=== PATIENT | male | born 2000 | race Caucasian/White ===

== ENCOUNTER 2021-07-17 07:02 | Outpatient (REF) | payer OTHER, SELFPAY ==
[2021-07-17 11:01] LABS: MANUAL DIFF FLAG NO
[2021-07-17 11:08] LABS: Basophils Absolute Auto 0.1 X10*3/uL (0.0-0.2); Basophils Percent Auto 0.7 % (0-2); Eosinophils Absolute Auto 0.1 X10*3/uL (0.0-0.4); Eosinophils Percent Auto 1.8 % (0-4); Hematocrit 48.2 % (42-52); Hemoglobin 17.1 g/dl (14.0-18.0); Imm Gran Abs Auto 0.03 X10*3/uL (0.00-0.03); Imm Gran Pct Auto 0.4 % (0.0-0.4); Lymphocytes Absolute Auto 2.3 X10*3/uL (1.2-4.9); Lymphocytes Percent Auto 29.7 % (20-40); Mean Corpuscular HGB Conc 35.5 g/dl (31.0-36.0); Mean Corpuscular Hemoglobin 30.7 pg (27.0-33.0); Mean Corpuscular Volume 86.5 fL (80-98); Mean Platelet Volume 10.7 fL (9.4-12.4); Monocytes Absolute Auto 0.9 X10*3/uL (0.1-1.2); Neutrophils Absolute Auto 4.2 X10*3/uL (2.0-8.3); Neutrophils Percent Auto 55.4 % (45-73); Platelet Count 307 X10*3/uL (160-400); Red Blood Count 5.57 X10*6/uL (4.60-5.80); Red Cell Distribution Width 12.1 % (11.0-16.0); White Blood Count 7.6 X10*3/uL (4.8-10.8)
[2021-07-17 11:20] LABS: Cholesterol 217 mg/dL; Glucose Fasting 91 mg/dL (60-99); HDL Cholesterol 48 mg/dL; LDL Cholesterol Calculated 137 mg/dl; Triglycerides 163 mg/dL
[2021-07-17 11:41] LABS: Thyroid Stimulating Hormone 2.94 uIU/mL (0.32-4.0)
[2021-07-17 15:16] LABS: Glucose Urine UA NEG (NEG); Leukocyte Esterase Urine NEG (NEG); Nitrite Urine NEG (NEG); PH 6.5 (5.0-8.0); Specific Gravity - Urine 1.015 (1.005-1.025); Urine Blood NEG (NEG); Urine Ketones NEG (NEG); Urine Protein NEG (NEG-TRACE)
[2021-07-17 15:19] LABS: Appearance Urine HAZY; Color Urine YELLOW
== END 2021-07-17 07:03 | disposition home or self-care (01) ==
LOC: HO.HMGCLDS 07:02
PROVIDERS: PCP Internal Medicine; Visit Provider Internal Medicine
DX: Z00.00 Encounter for general adult medical examination without abnormal findings (principal)
CPT/HCPCS: 36415; 80061; 81003; 82947; 84443; 85025

== ENCOUNTER 2023-11-02 13:52 | Outpatient (AMB) | payer OTHER, SELFPAY ==
--- NOTE | 2023-11-02 14:16 | MHC.OFFVIS ---
Intake Vital Signs 11/02/23 14:23 Weight 192 lb Intake Visit Reasons: anal fistula Intake Note: This patient presents for an assessment for anal fistula. Patient c/o; reports no rectal bleeding or pain. Pets Salesperson Required: No Accompanied by: Self / Same As Patient Allergies No Known Allergies Allergy (Verified 11/02/23 14:24) Medication List - Last Reconciled 11/02/23 by Edilberto Hawkins MD No Known Home Meds HPI anal fistula HPI Details 23-year-old male referred for a question of anal fistula. He actually points to ?holes? on the skin within the gluteal cleft. He says that he has had recurrent drainage with this and sometimes this can be a little bloody or purulent. He has had this for about 3 years now. He had call the office 3 years ago but he did not come because of the COVID pandemic at that time. He denies any problems with bowel movements. [facility] Medical History (Updated 11/02/23 @ 14:46 by Edilberto Hawkins MD) Pilonidal disease Surgical History History of appendectomy Family History Maternal Grandfather Colon cancer Social History Alcohol intake: never Patient Tobacco Use Status: Never used Tobacco Review of Systems Const Denies chills and Denies fever(s) Card Denies chest pain, Denies dyspnea and Denies dyspnea on exertion Resp Denies cough, Denies dyspnea and Denies dyspnea on exertion GI Denies hematochezia and Denies change in bowel habits Denies hematuria and Denies difficulty urinating Musc Denies back pain and Denies limited range of motion Neuro Denies focal weakness and Denies convulsions Psych Denies depression and Denies mood swings Physical Exam Const General: comfortable and no acute distress Orientation/consciousness: patient oriented x3 Neck Neck: Yes no lymphadenopathy Resp Auscultation: clear to auscultation bilaterally Cardio Rhythm: regular rhythm GI Other: Rectal exam shows no fissure, no sinuses Palpation (GI): Soft to palpation, nontender and no guarding Back/Spine/Pelvis Other: Within the gluteal cleft the midline is note of multiple sinuses consistent with pilonidal cyst; this extends to an area of about 3 cm long. There is no fluctuance at this time Neuro General: patient oriented x3 Office Procedures Anoscopy He was in himanshu-knife position. The anoscope was gently inserted. A full examination of the anal canal was done. There was no sign of any fistula. There was no induration in the anal canal. He had small hemorrhoids. There was no fissure. There was no induration on digital exam [id number] Assessment & Plan Assessment & Plan (1) Pilonidal disease: Code(s): L98.8 - Other specified disorders of the skin and subcutaneous tissue Plan: He has multiple sinuses and induration on the gluteal cleft consistent with a pilonidal disease in the sacrococcygeal area. I assured him that he does not have any anal fistula I did explain to him that treatment for this pilonidal disease would be excision of the entire diseased area. I explained the technique of this procedure under anesthesia in the operating room. I explained to him what to expect after the procedure. I reviewed the risks including but not limited to bleeding, infections, poor healing, as well as the benefits and alternatives. He understands and wants to proceed. Coding Level of Care Code New Pt Level 3 (07760) Diagnoses Pilonidal disease L98.8 CPT Codes Details - CPT: [id number] ([id number])
== END 2023-11-02 14:44 | disposition home or self-care (01) ==
PROVIDERS: PCP Internal Medicine; Visit Provider Surgery
DX: L05.92 Pilonidal sinus without abscess (principal)
CPT/HCPCS: 46600; 99203

== ENCOUNTER → 2023-11-02 13:52 | Outpatient (BNVA) | payer OTHER, SELFPAY | PROVIDERS: PCP Internal Medicine; Visit Provider Surgery | DX: L98.8 Other specified disorders of the skin and subcutaneous tissue (principal); K64.9 Unspecified hemorrhoids | CPT/HCPCS: 46600 ==

== ENCOUNTER 2024-01-05 08:28 | Day surgery (SDC) | payer BC, SELFPAY ==
--- NOTE | 2024-01-04 10:40 | HO.ANESPROP2 ---
Documented by User: Dulce Morrison NP 01/04/24 10:40 HPI - Anesthesia Eval Consult details Narrative: 24yo M for Excision Pilonidal Cyst, sacrococcygeal area [facility] Active Problems Active Problems: All Active Problems (Updated 11/02/23 @ 14:46 by Edilberto Hawkins MD) Pilonidal disease (Acute) Past Medical History Medical History Pilonidal disease Family History Family History Maternal Grandfather Colon cancer Surgical History Surgical History History of appendectomy Social History Social History Alcohol intake: never Patient Tobacco Use Status: Never used Tobacco Use of substances other than those prescribed or required for medical reasons: No Are you DNR?: No Advance Directives: No Advance Directives Information Provided: Yes Meds Allergies Allergy/AdvReac Type Severity Reaction Status Date / Time No Known Allergies Allergy Verified 01/05/24 09:06 Assessment and Plan Assessment Anesthesia Assessment: Chart Reviewed Documented by User: Murali Soto MD 01/05/24 10:03 PMFSH Past Medical History Medical History Pilonidal disease Family History Family History Maternal Grandfather Colon cancer Family history of problems with anesthesia: No Surgical History Surgical History History of appendectomy History of Problems with Anesthesia: No Social History Social History Alcohol intake: never Patient Tobacco Use Status: Never used Tobacco Use of substances other than those prescribed or required for medical reasons: No Are you DNR?: No Advance Directives: No Advance Directives Information Provided: Yes Meds Allergies Allergy/AdvReac Type Severity Reaction Status Date / Time No Known Allergies Allergy Verified 01/05/24 09:06 Exam Airway Mallampati Class: I TM Dist: >3cm Neck ROM: Full Loose/Missing/Broken Teeth: No Heart: ok Lungs: ok Assessment and Plan Assessment Anesthesia Assessment: Anesthesia Plan Discussed Final Anesthetic Review Family History of Problems with Anesthesia: No History of Problems with Anesthesia: No NPO: Yes ASA Class: I Final Preanesthetic Review: No Changes in Pt Med Stat, Meds/Allgs Chart Reviewed, Consent Obtained/Reviewed and Anes Risks/Benef Reviewed Patient Risk: Low Procedure Risk: Intermediate Anesthetic Plan Anesthetic Plan: GA and Agree w/ Assess. and Plan Disposition: Standard PACU
[2024-01-05] VITALS (7 sets, daily range): BP systolic 105–144; BP diastolic 38–92; PULSE 59–80; RESP 16–18; TEMP 36.2–36.9; O2SAT 97–100; BMI 27.2
[2024-01-05] MEDS: Lactated Ringers 1,000 ML 100 ML IVCONT (09:34)
--- NOTE | 2024-01-05 09:49 | MHC.SHP ---
Pre-Procedural Eval Section A - 24 Hr Update-Section A only Date of Service: 01/05/24 Section B - Complete if H&P > 30 days Chief Complaint: Other specified disorders of the skin and subcutan Details of Present Illness: has had sinuses and induration on sacrococcygeal area for years Relevant Family History (Specify if Yes): No Relevant Social History: None Present Medications: see Short Stay Collaborative assessment Medical History: No relevant PMH History of Previous Operations: No relevant previous surgery Allergies: Allergies Allergy/AdvReac Type Severity Reaction Status Date / Time No Known Allergies Allergy Verified 01/05/24 09:06 Review of Systems Sugical H&P ROS: Negative: Constitution, Cardiovascular, Respiratory, Neurological, Psychiatric, Hem-Onc, Allergic/Immunologic, Gastrointestinal, Genitourinary, Musculoskeletal, Integumentary, Endocrine and Eyes/Ears/Nose/Throat Exam Surgical H&P Exam: Normal: HEENT, Normal: Heart, Normal: Lungs, Normal: Extremities, Normal: Abdomen, Normal: Skin and Normal: Neurological Exam Comment: pilonidal cyst Plan Diagnosis/Plan: Unchanged I have reviewed the history and physical and performed a pertinent physical examination on my patient. No changes have occurred unless specified. Time Spent With Patient Time: Total time managing care of this patient today ____ minutes.
--- NOTE | 2024-01-05 10:48 | P.OP_ITS ---
Operative Note Operative Note Date of Service: 01/05/24 Narrative: Preop diagnosis: Pilonidal cyst, sacrococcygeal area Postop diagnosis: The same Procedure: Excision of pilonidal cyst, sacrococcygeal area Surgeon: Edilberto Hawkins MD The patient is a 24-year-old male with note of a long history of drainage and induration in the area of the tailbone. He was seen in the office. Was noted to have multiple sinuses within the gluteal cleft with induration consistent with a pilonidal cyst. He was also hirsute. He understood the technique of excision of the pilonidal cyst as well as the risks, benefits, and alternatives He was brought to the operating room. He was placed in prone position under general anesthesia via laryngeal mask airway. The buttocks were retracted with wide tape laterally. The sacrococcygeal area was prepped and draped in the usual sterile fashion. A surgical time-out was done. The patient received cefazolin 2 g IV preoperatively The multiple sinuses with the gluteal cleft and the midline were seen. I marked my planned line of the incision. I infiltrated this with lidocaine 1%. I made the incision on the skin around this entire area of induration with sinuses using a blade 15. This was carried down with electrocautery through the full- thickness of the thick subcutaneous fat to excise this entire indurated area. This was sent as a specimen. The area of dissection was about 7 cm long, 2 cm wide and 2.[address] deep into the subcutaneous layer. I copies irrigated I reapposed the subcutaneous layer the Polysorb 3-0 sutures. Skin closure was achieved with nylon 2-0 simple interrupted sutures alternating with vertical mattress sutures. The area was then infiltrated with Marcaine 0.5% for postop analgesia. Dressings were applied. The procedure was completed. He tolerated the procedure well. There were no immediate complications. Initial and final counts of sponges and instruments were correct. Estimated blood loss was about 15 cc. The patient was extubated without difficulty and transferred to the recovery room with stable vital signs.
== END 2024-01-05 11:39 | disposition home or self-care (01) ==
PROVIDERS: PCP Internal Medicine; Visit Provider Surgery
PROC: (CPT 11771; principal; 2024-01-05 09:50)
DX: L05.91 Pilonidal cyst without abscess (principal); L68.0 Hirsutism
CPT/HCPCS: 11771; 88304; J0690; J1170; J1885; J2405; J2704; J2795; J3010

== ENCOUNTER → 2024-01-05 08:28 | Outpatient (BNV) | payer BC, SELFPAY | PROVIDERS: PCP Internal Medicine; Visit Provider Surgery | DX: L05.91 Pilonidal cyst without abscess (principal) | CPT/HCPCS: 11771 ==

== ENCOUNTER 2024-01-18 08:42 | Outpatient (AMB) | payer OTHER, SELFPAY ==
--- NOTE | 2024-01-18 08:46 | A.OFFVIS_ITS ---
Intake Intake Visit Reasons: S/p Pilonidal cyst sacrococcygeal area Intake Note: This patient presents for a post-op assessment status post excision pilonidal cyst, sacrococcygeal area. Pt c/o; reports no complaints at this time. Certified Breastfeeding Educator Required: No Accompanied by: Self / Same As Patient Allergies No Known Allergies Allergy (Verified 01/18/24 08:52) Medication List - Last Reconciled 01/18/24 by Edilberto Hawkins MD ibuprofen 600 mg PO Q6H PRN oxycodone-acetaminophen 5-325 mg (Percocet) 1 tab PO Q4-6H PRN HPI S/p Pilonidal cyst sacrococcygeal area HPI Details He had undergone excision of a pilonidal cyst from the sacrococcygeal area last 01/05/2024. He tolerated procedure well. He currently denies significant complaints. He does state that there is still some drainage from the area. [facility] Medical History Pilonidal disease Surgical History History of excision of pilonidal cyst (~01/05/24) History of appendectomy Family History Maternal Grandfather Colon cancer Social History Alcohol intake: never Patient Tobacco Use Status: Never used Tobacco Review of Systems Const Denies chills and Denies fever(s) Card Denies chest pain, Denies dyspnea and Denies dyspnea on exertion Resp Denies cough, Denies dyspnea and Denies dyspnea on exertion GI Denies hematochezia and Denies change in bowel habits Denies hematuria and Denies difficulty urinating Musc Denies back pain and Denies limited range of motion Neuro Denies focal weakness and Denies convulsions Psych Denies depression and Denies mood swings Physical Exam Const General: comfortable and no acute distress Resp Effort & Inspection: normal respiratory effort Cardio Rate: regular rate Back/Spine/Pelvis Other: Excision site on the sacrococcygeal area clean, healing well, sutures intact but still with a little bit of separation between the skin edges Assessment & Plan Assessment & Plan (1) Pilonidal disease: Code(s): L98.8 - Other specified disorders of the skin and subcutaneous tissue Plan: Status post excision. The excision site is healing well. I did not remove the sutures as there is still some skin separation. I plan on seeing him again next week to remove the sutures when ready. The area is clean and is not infected. His path report confirms pilonidal disease. Coding Level of Care Code Global (43442) Diagnoses Pilonidal disease L98.8
== END 2024-01-18 09:13 | disposition home or self-care (01) ==
PROVIDERS: PCP Internal Medicine; Visit Provider Surgery
DX: L98.8 Other specified disorders of the skin and subcutaneous tissue (principal)
CPT/HCPCS: 99024

== ENCOUNTER → 2024-01-18 08:42 | Outpatient (BNVA) | payer OTHER, SELFPAY | PROVIDERS: PCP Internal Medicine; Visit Provider Surgery ==

== ENCOUNTER 2024-01-25 15:35 | Outpatient (AMB) | payer BC, SELFPAY ==
--- NOTE | 2024-01-25 15:39 | A.OFFVIS_ITS ---
Intake Intake Visit Reasons: S/p Pilonidal cyst sacrococcygeal area Intake Note: This patient presents for a post-op excision pilonidal cyst sacrococcygeal area. Pt c/o; reports no complaints. Rail Operator Required: No Accompanied by: Self / Same As Patient Allergies No Known Allergies Allergy (Verified 01/25/24 15:44) HPI S/p Pilonidal cyst sacrococcygeal area HPI Details He is here for a postop visit after excision of a pilonidal cyst from the sacrococcygeal area last January 05. He says he is doing well. His pain is much improved. [facility] Medical History Pilonidal disease Surgical History History of excision of pilonidal cyst (~01/05/24) History of appendectomy Family History Maternal Grandfather Colon cancer Social History Alcohol intake: never Patient Tobacco Use Status: Never used Tobacco Review of Systems Const Denies chills and Denies fever(s) Card Denies chest pain, Denies dyspnea and Denies dyspnea on exertion Resp Denies cough, Denies dyspnea and Denies dyspnea on exertion GI Denies hematochezia and Denies change in bowel habits Denies hematuria and Denies difficulty urinating Musc Denies back pain and Denies limited range of motion Neuro Denies focal weakness and Denies convulsions Psych Denies depression and Denies mood swings Physical Exam Const General: comfortable and no acute distress Back/Spine/Pelvis Other: Excision site is healing well, sutures intact, some epithelial debris collecting within the gluteal cleft along the incision, no signs of infection Assessment & Plan Assessment & Plan (1) Pilonidal disease: Code(s): L98.8 - Other specified disorders of the skin and subcutaneous tissue Plan: Status post excision. I removed all his sutures. The wound edges seemed to be well apposed. I advised him to do good wound care with frequent washing of the area with warm water. I will see him again in the office in about 2 weeks for another wound check. Coding Level of Care Code Global (30078) Diagnoses Pilonidal disease L98.8
== END 2024-01-25 16:00 | disposition home or self-care (01) ==
PROVIDERS: PCP Internal Medicine; Visit Provider Surgery
DX: L98.8 Other specified disorders of the skin and subcutaneous tissue (principal)
CPT/HCPCS: 99024

== ENCOUNTER → 2024-01-25 15:35 | Outpatient (BNVA) | payer BC, SELFPAY | PROVIDERS: PCP Internal Medicine; Visit Provider Surgery ==

== ENCOUNTER 2024-02-08 15:25 | Outpatient (AMB) | payer BC, SELFPAY ==
[2024-02-08 15:31] VITALS: BP 154/95; PULSE 88
--- NOTE | 2024-02-08 15:31 | A.OFFVIS_ITS ---
Intake Vital Signs 02/08/24 15:31 Weight 188 lb BP 154/95 H Blood Pressure Location Rt brachial Position Sitting Pulse 88 Intake Visit Reasons: S/p Pilonidal cyst sacrococcygeal area Intake Note: Patient here s/p pilonidal cyst on sacrum. Patient c/o: slowly healing. SX: 01-05-24. Leasing Director Required: No Accompanied by: Self / Same As Patient Allergies No Known Allergies Allergy (Verified 02/08/24 15:32) HPI S/p Pilonidal cyst sacrococcygeal area HPI Details He is here for follow-up after excision of a pilonidal cyst last month. He continues to have some bloody drainage from the area. He says he still has pain as well on the old incision. He says he has been pretty much doing regular level of activities. [facility] Medical History Pilonidal disease Surgical History History of excision of pilonidal cyst (~01/05/24) History of appendectomy Family History Maternal Grandfather Colon cancer Social History Alcohol intake: never Patient Tobacco Use Status: Never used Tobacco Review of Systems Const Denies chills and Denies fever(s) Card Denies chest pain, Denies dyspnea and Denies dyspnea on exertion Resp Denies cough, Denies dyspnea and Denies dyspnea on exertion GI Denies hematochezia and Denies change in bowel habits Denies hematuria and Denies difficulty urinating Musc Denies back pain and Denies limited range of motion Neuro Denies focal weakness and Denies convulsions Psych Denies depression and Denies mood swings Physical Exam Vital Signs: Last Vital Signs Pulse 88 02/08/24 15:31 BP 154/95 H 02/08/24 15:31 Const General: comfortable and no acute distress; No ill appearing Back/Spine/Pelvis Other: Excision site with skin separation, granulation tissue within, no pus, no cellulitis Assessment & Plan Assessment & Plan (1) Pilonidal disease: Code(s): L98.8 - Other specified disorders of the skin and subcutaneous tissue Plan: Status post excision. He had some skin separation. There was note of good granulation tissue in the open wound. I have instructed him on good wound care and hygiene. I anticipate this to completely reepithelialized down the line. I will see him again for another wound check in about 2-3 weeks. Coding Level of Care Code Global (38210) Diagnoses Pilonidal disease L98.8
== END 2024-02-08 15:48 | disposition home or self-care (01) ==
PROVIDERS: PCP Internal Medicine; Visit Provider Surgery
DX: L98.8 Other specified disorders of the skin and subcutaneous tissue (principal)
CPT/HCPCS: 99024

== ENCOUNTER → 2024-02-08 15:25 | Outpatient (BNVA) | payer BC, SELFPAY | PROVIDERS: PCP Internal Medicine; Visit Provider Surgery ==

== ENCOUNTER 2024-02-29 15:36 | Outpatient (AMB) | payer BC, SELFPAY ==
--- NOTE | 2024-02-29 15:40 | MHC.OFFVIS ---
Intake Intake Visit Reasons: S/p Pilonidal cyst sacrococcygeal area Intake Note: This patient presents for a wound check, Hx excision Pilonidal cyst sacrococcygeal area. Pt c/o; reports bloody/pus discharge. Pediatric Immunologist Required: No Accompanied by: Self / Same As Patient Allergies No Known Allergies Allergy (Verified 02/29/24 15:46) Medication List - Last Reconciled 02/29/24 by Edilberto Hawkins MD ibuprofen 600 mg PO Q6H PRN HPI S/p Pilonidal cyst sacrococcygeal area HPI Details He is here for a wound check after his pilonidal cyst excision last December,. He says that he still has some pain on the area. He would notice this to also still bleed every day. He denies denies any other complaints. He denies any purulent discharge. [facility] Medical History Pilonidal disease Surgical History History of excision of pilonidal cyst (~01/05/24) History of appendectomy Family History Maternal Grandfather Colon cancer Social History Alcohol intake: never Patient Tobacco Use Status: Never used Tobacco Review of Systems Const Denies chills and Denies fever(s) Card Denies chest pain, Denies dyspnea and Denies dyspnea on exertion Resp Denies cough, Denies dyspnea and Denies dyspnea on exertion GI Denies hematochezia and Denies change in bowel habits Denies hematuria and Denies difficulty urinating Musc Denies back pain and Denies limited range of motion Neuro Denies focal weakness and Denies convulsions Psych Denies depression and Denies mood swings Physical Exam Const General: comfortable and no acute distress Back/Spine/Pelvis Other: Excision site on the sacrococcygeal area has skin incision, good granulation in between, some bleeding in the granulation tissue, no pus; he has a very deep gluteal cleft; the area of skin separation has decreased in size Assessment & Plan Assessment & Plan (1) Pilonidal disease: Code(s): L98.8 - Other specified disorders of the skin and subcutaneous tissue Plan: Status post excision. He still has this area of skin separation with granulation tissue but this has decreased in size. I have changes dressings. I have instructed him to continue to do good wound care. I anticipate this area to completely reepithelialized down the line I emphasized to him good wound hygiene. I will see him again in the office in about 3 weeks. Coding Level of Care Code Global (57009) Diagnoses Pilonidal disease L98.8
== END 2024-02-29 16:03 | disposition home or self-care (01) ==
PROVIDERS: PCP Internal Medicine; Visit Provider Surgery
DX: L98.8 Other specified disorders of the skin and subcutaneous tissue (principal)
CPT/HCPCS: 99024

== ENCOUNTER → 2024-02-29 15:36 | Outpatient (BNVA) | payer BC, SELFPAY | PROVIDERS: PCP Internal Medicine; Visit Provider Surgery | DX: L98.8 Other specified disorders of the skin and subcutaneous tissue (principal) ==

== ENCOUNTER 2024-03-21 15:33 | Outpatient (AMB) | payer BC, SELFPAY ==
--- NOTE | 2024-03-21 15:34 | MHC.OFFVIS ---
Intake Visit Reasons: S/p Pilonidal cyst sacrococcygeal area Intake Note: This patient presents for a three week follow-up status post excision of pilonidal cyst, sacrococcygeal area. Pt c/o; reports no complaints. Film Touch Up Inspector Required: No Accompanied by: Self / Same As Patient Allergies No Known Allergies Allergy (Verified 03/21/24 15:35) HPI HPI S/p Pilonidal cyst sacrococcygeal area: Details: He is here for follow-up after pilonidal cyst excision. He has had this area that was slow to heal. He describes some drainage from this. He does state that the pain has improved significantly. [facility] Medical History Pilonidal disease Surgical History History of excision of pilonidal cyst (~01/05/24) History of appendectomy Family History Maternal Grandfather Colon cancer Social History Alcohol intake: never Patient Tobacco Use Status: Never used Tobacco Review of Systems Const Denies chills and Denies fever(s) Physical Exam Const General: comfortable and no acute distress Back/Spine/Pelvis Other: Open wound on the excision site is smaller however there is note of significant amounts of hair stuck around the open wound with resulting hypergranulation tissue; no cellulitis Assessment & Plan Assessment & Plan (1) Pilonidal disease: Code(s): L98.8 - Other specified disorders of the skin and subcutaneous tissue Category: Medical Plan: Status post excision. The open wound has contracted and seems to be much smaller now. However, I have noted hair strands stuck on the open wound so I had to cut hair around the area. The presence of large amounts of hair in contact with the wound may be causing some inflammatory reaction. I advised him on being more vigorous with regards to cleaning the area every day. He is to keep the area clean and dry with a gauze as well and changed this during the day I will see him again in the office in about a month. Coding Level of Care Code Global (92320) Diagnoses Pilonidal disease L98.8
== END 2024-03-21 15:51 | disposition home or self-care (01) ==
PROVIDERS: PCP Internal Medicine; Visit Provider Surgery
DX: L98.8 Other specified disorders of the skin and subcutaneous tissue (principal)
CPT/HCPCS: 99024

== ENCOUNTER → 2024-03-21 15:33 | Outpatient (BNVA) | payer BC, SELFPAY | PROVIDERS: PCP Internal Medicine; Visit Provider Surgery | DX: L98.8 Other specified disorders of the skin and subcutaneous tissue (principal) ==

== ENCOUNTER 2024-05-09 15:15 | Outpatient (AMB) | payer BC, SELFPAY ==
--- NOTE | 2024-05-09 15:22 | A.OFFVIS_ITS ---
Vital Signs 05/09/24 15:28 Height 5 ft 11 in Weight 187 lb 15.987 oz BMI 26.2 Intake Visit Reasons: Pilonidal disease, wound check Intake Note: This patient presents for a wound check for pilonidal disease. Patient c/o; reports no complaints. Gold Assayer Required: No Accompanied by: Self / Same As Patient Allergies No Known Allergies Allergy (Verified 05/09/24 15:23) Medication List - Last Reconciled 05/09/24 by Edilberto Hawkins MD ibuprofen 600 mg PO Q6H PRN HPI HPI Pilonidal disease, wound check: Details: He is here for follow-up after excision of a pilonidal cyst last December,. He says that he no longer has significant pain on the area. He says that the drainage has improved significantly. He says he is back to his regular level of activities and has even gone to the beach. [facility] Medical History Pilonidal disease Surgical History History of excision of pilonidal cyst (~01/05/24) History of appendectomy Family History Maternal Grandfather Colon cancer Social History Alcohol intake: never Patient Tobacco Use Status: Never used Tobacco Review of Systems Const Denies chills and Denies fever(s) Card Denies chest pain, Denies dyspnea and Denies dyspnea on exertion Resp Denies cough, Denies dyspnea and Denies dyspnea on exertion GI Denies hematochezia and Denies change in bowel habits Denies hematuria and Denies difficulty urinating Musc Denies back pain and Denies limited range of motion Neuro Denies focal weakness and Denies convulsions Psych Denies depression and Denies mood swings Physical Exam Vital Signs: BMI result Body Mass Index 26.2 Const General: comfortable and no acute distress Resp Effort & Inspection: normal respiratory effort Back/Spine/Pelvis Other: In the gluteal cleft is note of a very small residual open wound with good granulation. However, there is note of significant epithelial debris and loose hair within the gluteal cleft itself that is in trapped because of his deep cleft. I had to clean this up the moist gauze Assessment & Plan Assessment & Plan (1) Pilonidal disease: Code(s): L98.8 - Other specified disorders of the skin and subcutaneous tissue Category: Medical Plan: He had excision done in December,. It took a while for the excision site to heal completely. This is now down to a very small open wound which is clean However, there was note of entrapped epithelial debris and loose hair within the gluteal cleft. I told him that this will make him prone to recurrence. I instructed him to make sure that he does vigorous washing of the gluteal cleft at least once or twice a day to prevent recurrence of his disease. He is very hairy so he is prone to recurrence of this pilonidal disease He says he will call me for follow-up in a few months if he does not notice complete resolution of the open wound. Overall, he has improved significantly. Coding Level of Care Code Est Pt Level 2 (43417) Diagnoses Pilonidal disease L98.8
[2024-05-09 15:28] VITALS: BMI 26.2
== END 2024-05-09 15:37 | disposition home or self-care (01) ==
PROVIDERS: PCP Internal Medicine; Visit Provider Surgery
DX: L98.8 Other specified disorders of the skin and subcutaneous tissue (principal)
CPT/HCPCS: 99212

== ENCOUNTER → 2024-05-09 15:15 | Outpatient (BNVA) | payer BC, SELFPAY | PROVIDERS: PCP Internal Medicine; Visit Provider Surgery ==

== ENCOUNTER 2024-09-16 15:18 | Outpatient (AMB) | payer BC, SELFPAY ==
--- NOTE | 2024-09-16 15:20 | A.OFFVIS_ITS ---
Intake Visit Reasons: Pilonidal disease, wound check Intake Note: This patient presents for Pilonidal disease, wound check. Pt c/o: reports no complaints at this time. Three Knife Trimmer Required: No Accompanied by: Self / Same As Patient Allergies No Known Allergies Allergy (Verified 09/16/24 15:25) Medication List - Last Reconciled 09/16/24 by Edilberto Hawkins MD ibuprofen 600 mg PO Q6H PRN HPI HPI Pilonidal disease, wound check: Details: He is here for follow-up after excision of a large pilonidal cyst from the sacrococcygeal area in December, He says that there is less bleeding and discharge from the open wound. He does not see the area well so he wanted this to be checked again. He denies any significant pain. [facility] Medical History Pilonidal disease Surgical History History of excision of pilonidal cyst (~01/05/24) History of appendectomy Family History Maternal Grandfather Colon cancer Social History Alcohol intake: never Patient Tobacco Use Status: Never used Tobacco Review of Systems Const Denies chills and Denies fever(s) Card Denies chest pain GI Denies abdominal pain Physical Exam Const General: comfortable and no acute distress Resp Effort & Inspection: normal respiratory effort Back/Spine/Pelvis Other: Excision site on the sacrococcygeal area has residual open wound granulation well but with note of entrapped still debris and strands of hair. Otherwise no signs of infection Office Procedures Cauterization - Skin lesions Skin Cauter Details: There was note of hypergranulation of the residual open wound. I therefore cauterized stitch using silver nitrate sticks. He tolerated procedure well. There were no immediate complications. The area cauterized was about cm by 4 cm Destruction: 24310- Chemical Cautery, Granulation Tissue Assessment & Plan Assessment & Plan (1) Pilonidal disease: Code(s): L98.8 - Other specified disorders of the skin and subcutaneous tissue Category: Medical Plan: Status post excision in December 2023. However, there is still a residual open wound. There was note of some trapped epithelial debris as well as clamps of hair in the area. I scrubbed this gauze. I cauterized the remaining open wound with silver nitrate sticks I advised him to be more aggressive with regards to cleaning the area. Unfortunately, healing we will be prolonged and delayed if there is note of trapped epithelial debris and hair. He seems to understand. I will see him again in the office in about a month. Coding Level of Care Code Est Pt Level 3 (13852) Diagnoses Pilonidal disease L98.8 CPT Codes Skin Cauter - Destruction: 90039- Chemical Cautery, Granulation Tissue ([id number])
== END 2024-09-16 15:32 | disposition home or self-care (01) ==
LOC: HO.HGS 15:19
PROVIDERS: PCP Internal Medicine; Visit Provider Surgery
DX: L98.8 Other specified disorders of the skin and subcutaneous tissue (principal)
CPT/HCPCS: 17250; 99213

== ENCOUNTER → 2024-09-16 15:18 | Outpatient (BNVA) | payer BC, SELFPAY | PROVIDERS: PCP Internal Medicine; Visit Provider Surgery | DX: T81.31XA Disruption of external operation (surgical) wound, not elsewhere classified, initial encounter (principal) | CPT/HCPCS: 17250 ==

== ENCOUNTER → 2024-11-18 08:19 | Outpatient (BNVA) | payer BC, SELFPAY | PROVIDERS: PCP Internal Medicine; Visit Provider Surgery | DX: L05.91 Pilonidal cyst without abscess (principal) | CPT/HCPCS: 17250 ==

== ENCOUNTER 2024-11-18 08:53 | Outpatient (AMB) | payer OTHER, SELFPAY ==
[2024-11-18 09:00] VITALS: BMI 27.4
--- NOTE | 2024-11-18 09:00 | A.OFFVIS_ITS ---
Vital Signs 11/18/24 09:00 Height 5 ft 11 in Weight 196 lb 8 oz BMI 27.4 Intake Visit Reasons: pilonidal cyst recurrence Intake Note: This patient presents for wound check for pilonidal cyst. Pt c/o; reports he is here for a wound check. Shipping And Receiving Coordinator Required: No Accompanied by: Self / Same As Patient Allergies No Known Allergies Allergy (Verified 11/18/24 09:01) Medication List - Last Reconciled 11/18/24 by Edilberto Hawkins MD ibuprofen 600 mg PO Q6H PRN HPI HPI pilonidal cyst recurrence: Details: He had excision of a large area of pilonidal disease on the sacrococcygeal region last December,. He has had this wound that has healed very slowly I had cauterized hypergranulation areas on his last visit. He says he has very minimal drainage if at all. He does state that the wound seems to be much smaller. [facility] Medical History Pilonidal disease Surgical History History of excision of pilonidal cyst (~01/05/24) History of appendectomy Family History Maternal Grandfather Colon cancer Social History Alcohol intake: never Patient Tobacco Use Status: Never used Tobacco Review of Systems Const Denies chills and Denies fever(s) Card Denies chest pain, Denies dyspnea and Denies dyspnea on exertion Resp Denies cough, Denies dyspnea and Denies dyspnea on exertion GI Denies hematochezia and Denies change in bowel habits Denies hematuria and Denies difficulty urinating Musc Denies back pain and Denies limited range of motion Neuro Denies focal weakness and Denies convulsions Psych Denies depression and Denies mood swings Physical Exam Vital Signs: BMI result Body Mass Index 27.4 Const General: comfortable and no acute distress Resp Effort & Inspection: normal respiratory effort Cardio Rate: regular rate Back/Spine/Pelvis Other: Residual wound in the gluteal cleft, with good hypergranulation tissue, about 2.8 cm long by about 1 cm wide, clean, not infected Office Procedures Cauterization - Skin lesions Skin Cauter Details: He was in himanshu-knife position. The buttocks were retracted laterally. I cauterized hypergranulation tissue on the residual open wound. I applied dry dressings. He tolerated procedure well. There were no immediate complications. Destruction: 54711- Chemical Cautery, Granulation Tissue Assessment & Plan Assessment & Plan (1) Pilonidal disease: Code(s): L98.8 - Other specified disorders of the skin and subcutaneous tissue Category: Medical Plan: He has a residual open wound with some hypergranulation. I cauterized this with silver nitrate sticks. This has decreased in surface area He is to continue good wound care. I anticipate this to continue to heal and reepithelialized. I will see him again in the office for another wound check in about 2 months. Coding Level of Care Code Est Pt Level 3 (86284) Diagnoses Pilonidal disease L98.8 CPT Codes Skin Cauter - Destruction: 63130- Chemical Cautery, Granulation Tissue ([id number])
== END 2024-11-18 09:15 | disposition home or self-care (01) ==
LOC: HO.HGS 08:53
PROVIDERS: PCP Internal Medicine; Visit Provider Surgery
DX: L98.8 Other specified disorders of the skin and subcutaneous tissue (principal)
CPT/HCPCS: 17250; 99213

== ENCOUNTER 2025-11-11 14:49 | Outpatient (AMB) | payer OTHER, SELFPAY ==
--- NOTE | 2025-11-11 14:51 | MHC.PC.OV ---
Vital Signs 11/11/25 14:59 Height 5 ft 10.47 in Weight 200 lb BMI 28.3 BP 146/61 H Blood Pressure Location Rt brachial Position Sitting Respiration 14 Pulse 72 Pulse Source Pulse Oximeter Temp 97.7 F Temp Source Temporal Artery Scan Pulse Oximetry (%) 99 Oxygen Delivery Method Room Air Intake Visit Reasons: physical English Instructor Required: No Accompanied by: Self / Same As Patient Allergies No Known Allergies Allergy (Verified 11/11/25 14:51) Tobacco use date assessed: 11/11/25 Dental Screening Dental Screen Date: 11/11/25 Did you have a dental visit in the last 12 months?: No Did you have a dental problem in the last 6 months where you did not have access to dental care?: No Was dental information given to patient?: Patient has dentist [facility] Medical History Pilonidal disease Surgical History History of excision of pilonidal cyst (~01/05/24) History of appendectomy Family History (Updated 11/11/25 @ 15:03 by KOBY Salazar) Maternal Grandfather Colon cancer Father High cholesterol Mother No problems noted. Social History (Updated 11/11/25 @ 15:03 by KOBY Salazar) Housing: House Alcohol intake: current Alcohol intake frequency: a few times a week Patient Tobacco Use Status: Never used Tobacco service: No Current occupational status: employed Cognitive needs: No Hearing needs: No Vision needs: Yes (rx glasses) Questionnaire PHQ-9 Over the last 2 weeks, how often have you been bothered by any of the following problems? 1. Little interest or pleasure in doing things: not at all 2. Feeling down, depressed, or hopeless: not at all 3. Trouble falling or staying asleep, or sleeping too much: not at all 4. Feeling tired or having little energy: not at all 5. Poor appetite or overeating: not at all 6. Feeling bad about yourself - or that you are a failure or have let yourself or your family down: not at all 7. Trouble concentrating on things, such as reading the newspaper or watching television: not at all 8. Moving or speaking so slowly that other people could have noticed. Or the opposite - being so fidgety or restless that you have been moving around a lot more than usual: not at all 9. Thoughts that you would be better off or of hurting yourself in some way: not at all Total score: 0 Source: Developed by Drs. Anival Najera, Jenn Sun, Nahid Keen and colleagues, with an educational audelia from [employer]. Thrive Questionnaire Date Thrive assessed: 11/11/25 I am a: Patient What is your living situation today?: I have a steady place to live Within the past 12 months, did the food you bought not last and you didn't have the money to get more?: Never true Within the past 12 months, did you worry whether your food would run out before you got money to buy more?: Never true Do you have trouble paying for medicines?: No Do you have trouble getting transportation to medical appointments?: No Do you have trouble paying your heating and electricity bill?: No Do you have trouble taking care of your child, family member or friend?: No Do you have trouble with day-to-day activities such as bathing, preparing meals, shopping, managing finances, etc.?: No Are you currently unemployed and looking for a job?: No Are you interested in more education?: No Please select the resources that you would like help with: None THRIVE Score: 0 AUDIT C Alcohol Use Questionnaire (AUDIT-C) 1. How often do you have a drink containing alcohol?: 2-3 times a week 2. How many drinks containing alcohol do you have on a typical day when you are drinking?: 1 or 2 3. How often do you have six or more drinks on one occasion?: Never Total Score: 3 DILIP-7 AMB Questionnaire DILIP-7 Date DILIP - 7 assessed: 11/11/25 Feeling nervous, anxious, or on edge: 0 = Not at all Not being able to stop or control worryin = Not at all Worrying too much about different things: 0 = Not at all Trouble relaxin = Not at all Being so restless that it is hard to sit still: 0 = Not at all Becoming easily annoyed or irritable: 0 = Not at all Feeling afraid as if something awful might happen: 0 = Not at all Total DILIP-7 score (0-4 normal; 5-9 mild; 10-14 moderate; 15-21 severe): 0 Source: Developed by Drs. Anival Najera, Jenn Sun, Nahid Keen and colleagues, with an educational audelia from [employer]. Physical exam (Primary Care) Tobacco/Smoking Status: Tobacco use Status Patient Tobacco Use Status Never used Tobacco 01/05/24 10:52 Office Procedures Flu Questionnaire Does the patient have a severe egg allergy?: No Does the patient have severe life threatening allergies?: No Does the patient have a fever or illness today?: No Has the patient ever had Guillain-Deal Syndrome?: No Has the patient ever had any past reaction to a flu shot?: No Immunizations Fluarix [id number] (PF) 45 mcg (15 mcg x 3)/0.5 mL IM syringe Performing Provider: Juan Daniel Adam MD [facility] Administered by: KOBY Salazar on 11/11/25 15:04 Dose Route Admin Location Dispensed Lot Number Expiration Date NDC Rim Roller Operator 0.5 mL IM Left Deltoid 0.5 mL [id number] 05/19/26 [id number] [employer] VIS Given Date VIS Provided VIS Publication Date 11/11/25 Single Vaccine 24 Eligibility Eligibility Date Funding Source Not [facility] Eligible 11/11/25 Private Coding Assessment & Plan Assessment & Plan Orders: Orders Influenza [id number] Immunization Today Z23 - Encounter for immunization Basic Metabolic Panel Today Z00.00 - Encounter for general adult medical examination without abnormal findings Lipid Panel Today Z00.00 - Encounter for general adult medical examination without abnormal findings Liver Panel Today Z00.00 - Encounter for general adult medical examination without abnormal findings Thyroid Stimulating Hormone Today Z00.00 - Encounter for general adult medical examination without abnormal findings UA and rflx microscopic Today Z00.00 - Encounter for general adult medical examination without abnormal findings Complete Blood Count no Diff Today Z00.00 - Encounter for general adult medical examination without abnormal findings
[2025-11-11 14:59] VITALS: BP 146/61; PULSE 72; RESP 14; TEMP 36.5; O2SAT 99; BMI 28.3
--- OUTSIDE RECORDS SUMMARY | 2025-11-11 16:05 | XMS_ITS | Encounter Summary ---
Author Organization [facility] Address [address] [place], [place] [phone] Phone Care Team Providers Care Senior Copywriter Name Role Phone Unavailable Primary Care Provider Unavailabl e Encounter Details Date Type Department Care Team (Late st Contact Info) Description 06/17/2011 Documentation [facility] [place] [address] [place] [address] Family Medicine, Physician [address] [place] [address] Social History Tobacco Use Types Packs/Day Years Used Date Smoking Tobacco: Never Assessed Sex and Gender Information Value Date Recorded Sex Assigned at Not on file Legal Sex Male 5:00 PM EDT Gender Identity Not on file Sexual Orientation Not on file documented as of this encounter Plan of Treatment Not on file documented as of this encounter Visit Diagnoses Not on filedocumented in this encounter
--- OUTSIDE RECORDS SUMMARY | 2025-11-11 16:05 | XMS_ITS | Encounter Summary ---
Author Organization [facility] Address [address] [place], [place] [address] Phone Care Team Providers Care Private Branch Exchange Repairer Name Role Phone Unavailable Primary Care Provider Unavailabl e Encounter Details Date Type Department Care Team (Late st Contact Info) Description 08/30/2011 Documentation [facility] [place] [address] [place] [address] Family Medicine, Physician [address] [place] [address] Social History Tobacco Use Types [...]
--- OUTSIDE RECORDS SUMMARY | 2025-11-11 16:05 | XMS_ITS | Clinical Summary ---
Author Organization [facility] Address [address] [place] [address] Phone Care Team Providers Care Insurance Special Agent Name Role Phone Unavailable Primary Care Provider Unavailabl e Immunizations Immunization Administration Dates Next Due DTP 1998,1998,1998 DTaP 5 01/28/2002,07/05/1999 H1N1 12/14/2009 HPV, Quadrivalent 07/04/2012,08/25/2011,06/16/20 11 Hep A, ped/adol 09/03/2014,06/16/2011 Hep B, ped/adol 1998,1998,1998 Hib (PRP-T) 03/31/1999, 8,1998,03/05 IPV 01/28/2002,1998,1998 Influenza Split 08/25/2011,08/25/2010 Influenza, injectable, quadr ivalent, preservative free 11/22/2016,09/09/2015,09/03/2014 MMR 01/28/2002,1999 Meningococcal Conj (Menactra) MCV4P 09/09/2015,0 05/25/2009 OPV 1999,1998 Tdap 05/25/2009 Varicella 07/17/2008,04/12/2000 Family History Relation Name Status Comments Brother Alive Brother: Alive and well Father Alive Father: Alive a nd well Mother Alive Mother: Alive a nd well Other Family history of Diabetes mellitus, Family history of Cancer, colon Sister Alive Sister: Alive a nd well Social History Tobacco Use Types Packs/Day Years Used Date Smoking Tobacco: Never Comments:Never smoker Sex and Gender Information Value Date Recorded Sex Assigned at Not on file Legal Sex Male 5:00 PM EDT Gender Identity Not on file Sexual Orientation Not on file Last Filed Vital Signs Vital Sign Reading Time Taken Comments Blood Pressure 138/70 11/22/2016 12:00 AM EST Pulse 97 11/22/2016 12:00 AM EST Temperature 35.8 C (96.5 F) 07/04/2012 12:00 AM EDT Respiratory Rate - - Oxygen Saturation - - Inhaled Oxygen Concentration - - Weight 78 kg (172 lb) 11/22/2016 12:00 AM EST Height 177.2 cm (5' 9.75 ) 11/22/2016 12:[address] Body Mass Index 24.86 11/22/2016 12:00 AM EST Plan of Treatment Health Maintenance Due Date Last Done Comments DTaP,Tdap,and Td Vaccines (7 - Td or Tdap) 05/25/2019 05/25/2009, 01/28/2002, 07/05/1999, Additional history exists Influenza Vaccines (#1) 2025 11/22/19 17, 09/09/2015, 09/03/2014, Additional history exists COVID-19 Vaccine ( season) 2025 Hepatitis B Vaccines Completed 1998, 1998, 1998 HIB Vaccines Completed 03/31/1999, 12/1997, 1998, Additional history exists IPV Vaccines Completed 01/28/2002, 12/21, 1998, Additional history exists MMR Vaccines Completed 01/28/2002, 1999 Varicella Vaccines Completed 07/17/2008, 04/12/2000 HPV Vaccines Completed 07/04/2012, 04/2011, 06/16/2011 Hepatitis A Vaccines Completed 09/03/2014, 06/16/20 11 Meningococcal Vaccine Completed 09/09/2015, 009 Men B Vaccine Aged Out No longer elig ible based on patient's age to complete this topic Pneumococcal Vaccine Aged Out No long er eligible based on patient's age to complete this topic
--- OUTSIDE RECORDS SUMMARY | 2025-11-11 16:05 | XMS_ITS | Encounter Summary ---
Author Organization [facility] Address [address] [place], [place] [address] Phone Care Team Providers Care Care Assistant Name Role Phone Unavailable Primary Care Provider Unavailabl e Encounter Details Date Type Department Care Team (Late st Contact Info) Description 09/11/2015 Documentation [facility] [place] [address] [place] [address] Family Medicine, Physician [address] [place] [address] Social History Tobacco Use Types [...]
--- OUTSIDE RECORDS SUMMARY | 2025-11-11 16:05 | XMS_ITS | Encounter Summary ---
Author Organization [facility] Address [address] [place], [place] [phone] Phone Care Team Providers Care Drug Room Operator Name Role Phone Unavailable Primary Care Provider Unavailabl e Encounter Details Date Type Department Care Team (Late st Contact Info) Description 07/11/2013 Documentation [facility] [place] [address] [place] [address] Family Medicine, Physician [address] [place] [address] Social History Tobacco Use Types [...]
--- OUTSIDE RECORDS SUMMARY | 2025-11-11 16:05 | XMS_ITS | Encounter Summary ---
Author Organization [facility] Address [address] [place], [place] [phone] Phone Care Team Providers Care Account Support Analyst Name Role Phone Unavailable Primary Care Provider Unavailabl e Encounter Details Date Type Department Care Team (Late st Contact Info) Description 08/30/2011 Documentation [facility] [place] [address] [place] [address] Family Medicine, Physician [address] [place] [address] Social History Tobacco Use Types [...]
--- OUTSIDE RECORDS SUMMARY | 2025-11-11 16:05 | XMS_ITS | Encounter Summary ---
Author Organization [facility] Address [address] [place], [place] [address] Phone Care Team Providers Care Circular Tank Cooper Name Role Phone Unavailable Primary Care Provider Unavailabl e Encounter Details Date Type Department Care Team (Late st Contact Info) Description 07/05/2012 [place] [facility] [place] [address] [place] [address] Family Medicine, Physician [address] [place] [address] Social History Tobacco Use Types [...]
--- OUTSIDE RECORDS SUMMARY | 2025-11-11 16:05 | XMS_ITS | Encounter Summary ---
Author Organization [facility] Address [address] [place], [place] [phone] Phone Care Team Providers Care Vice President Of Brand Management Name Role Phone Unavailable Primary Care Provider Unavailabl e Encounter Details Date Type Department Care Team (Late st Contact Info) Description 06/17/2011 Documentation [facility] [place] [address] [place] [address] Family Medicine, Physician [address] [place] [address] Social History Tobacco Use Types [...]
--- OUTSIDE RECORDS SUMMARY | 2025-11-11 16:05 | XMS_ITS | Encounter Summary ---
Author Organization [facility] Address [address] [place], [place] [address] Phone Care Team Providers Care Dry Cell Battery Assembler Name Role Phone Unavailable Primary Care Provider Unavailabl e Encounter Details Date Type Department Care Team (Late st Contact Info) Description 09/04/2014 Documentation [facility] [place] [address] [place] [address] Family Medicine, Physician [address] [place] [address] Social History Tobacco Use Types [...]
--- OUTSIDE RECORDS SUMMARY | 2025-11-11 16:05 | XMS_ITS | Encounter Summary ---
Author Organization [facility] Address [address] [place], [place] [phone] Phone Care Team Providers Care Lokie Driver Name Role Phone Unavailable Primary Care Provider Unavailabl e Encounter Details Date Type Department Care Team (Late st Contact Info) Description 11/23/2016 Documentation [facility] [place] [address] [place] [address] Family Medicine, Physician [facility] [place] [address] Social History Tobacco Use [...]
--- OUTSIDE RECORDS SUMMARY | 2025-11-11 16:05 | XMS_ITS | Encounter Summary ---
Author Organization [facility] Address [address] [place], [place] [phone] Phone Care Team Providers Care Senior Process Engineer Name Role Phone Unavailable Primary Care Provider Unavailabl e Encounter Details Date Type Department Care Team (Late st Contact Info) Description 07/11/2013 [place]ation [facility] [place] [address] [place] [address] Family Medicine, Physician [address] [place] [address] Social History Tobacco Use Types [...]
--- OUTSIDE RECORDS SUMMARY | 2025-11-11 16:05 | XMS_ITS | Encounter Summary ---
Author Organization [facility] Address [address] [place], [place] [phone] Phone Care Team Providers Care Security System Sales Consultant Name Role Phone Unavailable Primary Care Provider Unavailabl e Encounter Details Date Type Department Care Team (Late st Contact Info) Description 06/17/2011 Documentation [facility] [place] [address] [place] [address] Family Medicine, Physician [address] [place] [address] Social History Tobacco Use Types [...]
--- OUTSIDE RECORDS SUMMARY | 2025-11-11 16:05 | XMS_ITS | Encounter Summary ---
Author Organization [facility] Address [address] [place] [phone] Phone Care Team Providers Care Coal Unloader Name Role Phone Unavailable Primary Care Provider Unavailabl e Encounter Details Date Type Department Care Team (Late st Contact Info) Description 07/06/2017 Conversion Encounter [facility] - [address] [address] Social History Tobacco Use Types Packs/Day Years [...]
--- OUTSIDE RECORDS SUMMARY | 2025-11-11 16:05 | XMS_ITS | Encounter Summary ---
Author Organization [facility] Address [address] [place], [place] [phone] Phone Care Team Providers Care Tool Polishing Machine Operator Name Role Phone Unavailable Primary Care Provider Unavailabl e Encounter Details Date Type Department Care Team (Late st Contact Info) Description 07/05/2012 [place] [facility] [place] [address] [place] [address] Family Medicine, Physician [address] [place] [address] Social History Tobacco Use Types [...]
--- OUTSIDE RECORDS SUMMARY | 2025-11-11 16:05 | XMS_ITS | Encounter Summary ---
Author Organization [facility] Address [address] [place], [place] [phone] Phone Care Team Providers Care Mash Filter Operator Name Role Phone Unavailable Primary Care Provider Unavailabl e Encounter Details Date Type Department Care Team (Late st Contact Info) Description 09/10/2015 Documentation [facility] [place] [address] [place] [address] Family Medicine, Physician [address] [place] [address] Social History Tobacco Use Types [...]
--- OUTSIDE RECORDS SUMMARY | 2025-11-11 16:05 | XMS_ITS | Encounter Summary ---
Author Organization [facility] Address [address] [place], [place] [id number] Phone Care Team Providers Care Prescriptionist Name Role Phone Unavailable Primary Care Provider Unavailabl e Encounter Details Date Type Department Care Team (Late st Contact Info) Description 07/10/2013 Documentation [facility] [place] [address] [place] [address] Family Medicine, Physician [address] [place] [address] Social History Tobacco Use [...]
--- OUTSIDE RECORDS SUMMARY | 2025-11-11 16:05 | XMS_ITS | Encounter Summary ---
Author Organization [facility] Address [address] [place], [place] [id number] Phone Care Team Providers Care Administrator Pesticide Name Role Phone Unavailable Primary Care Provider Unavailabl e Encounter Details Date Type Department Care Team (Late st Contact Info) Description 09/04/[address] [facility] [place] [address] [place] [address] Family Medicine, Physician [address] [place] [address] Social History Tobacco Use Types [...]
--- OUTSIDE RECORDS SUMMARY | 2025-11-11 16:05 | XMS_ITS | Encounter Summary ---
Author Organization [facility] Address [address] [place], [place] [id number] Phone Care Team Providers Care Tenant Relations Coordinator Name Role Phone Unavailable Primary Care Provider Unavailabl e Encounter Details Date Type Department Care Team (Late st Contact Info) Description 11/23/2016 Documentation [facility] [place] [address] [place] [address] Family Medicine, [place] [address] Social History Tobacco Use Types [...]
--- OUTSIDE RECORDS SUMMARY | 2025-11-11 16:05 | XMS_ITS | Encounter Summary ---
Author Organization [facility] Address [address] [place], [place] [id number] Phone Care Team Providers Care Networking Administrator Name Role Phone Unavailable Primary Care Provider Unavailabl e Encounter Details Date Type Department Care Team (Late st Contact Info) Description 09/11/2015 Documentation [facility] [place] [address] [place] [address] Family Medicine, Physician [address] [place] [address] Social History Tobacco Use Types [...]
--- OUTSIDE RECORDS SUMMARY | 2025-11-11 16:05 | XMS_ITS | Encounter Summary ---
Author Organization [facility] Address [address] [place], [place] [phone] Phone Care Team Providers Care Public Health Aides Teacher Name Role Phone Unavailable Primary Care Provider Unavailabl e Encounter Details Date Type Department Care Team (Late st Contact Info) Description 09/04/2014 Documentation [facility] [place] [address] [place] [address] Family Medicine, Physician [address] [place] [address] Social History Tobacco Use Types [...]
--- OUTSIDE RECORDS SUMMARY | 2025-11-11 16:05 | XMS_ITS | Encounter Summary ---
Author Organization [facility] Address [address] [place], [place] [phone] Phone Care Team Providers Care Instructional Technology Teacher Name Role Phone Unavailable Primary Care Provider Unavailabl e Encounter Details Date Type Department Care Team (Late st Contact Info) Description 11/23/2016 Documentation [facility] [place] [address] [place] [address] Family Medicine, Physician [facility] [place] [address] Social History Tobacco Use Types [...]
== END 2025-11-11 15:18 | disposition home or self-care (01) ==
LOC: HO.HMCSH 14:49
PROVIDERS: PCP Internal Medicine; Visit Provider Internal Medicine
DX: Z23 Encounter for immunization (principal)

== ENCOUNTER → 2025-11-11 14:49 | Outpatient (BNVA) | payer OTHER, SELFPAY | PROVIDERS: PCP Internal Medicine; Visit Provider Internal Medicine | DX: Z23 Encounter for immunization (principal) | CPT/HCPCS: 90471; 90656 ==